=== PATIENT | female | born 1990 | race Caucasian/White ===

== ENCOUNTER → 2017-02-23 | Outpatient (CLI) | payer OTHER ==
[~2017-02-23] MED LIST: IRON1 TAB; MACRODANTIN PO; METRONIDAZOLE PO; VINACAL B PREN1 EACH PO
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
== END | disposition home or self-care (01) ==
LOC: CMRI 14:31
DX: M54.5 Low back pain (principal); M51.86 Other intervertebral disc disorders, lumbar region
CPT/HCPCS: 72148